=== PATIENT | female | born 1945 | race Caucasian/White ===

== ENCOUNTER → 2016-12-02 | Outpatient (CLI) | payer MEDICARE, BC ==
[~2016-12-02] MED LIST: ACETAMINOPHEN1 EACH PO; ALLERGY RELIEF10 MG PO; ASPIRIN EC81 MG PO; CITALOPRAM HBR20 MG PO; CRESTOR40 MG PO; NORCO 5-325 TA1 EACH PO; VALSARTAN-HCTZ1 EAC3 PO; VITAMIN D1000 UNIT PO; VITAMIN E1000 UNI1 PO
== END | disposition disaster alternative care site (69) ==
LOC: GRAD 13:36
DX: I65.23 Occlusion and stenosis of bilateral carotid arteries (principal); R93.8 Abnormal findings on diagnostic imaging of other specified body structures
CPT/HCPCS: Q9967

== ENCOUNTER 2016-12-10 11:00 | Inpatient (IN) | payer MEDICARE, BC ==
[~2016-12-10] VITALS: Ht 162.6 cm; Wt 88.1 kg
--- NOTE | ~2016-12-10 | OR ---
PATIENT'S NAME: RYANN GUERRERO [facility] AGE: 70 Y [address] ROOM: [address] [address] [facility] AD[facility] DATE: 12/15/2016 OR/Procedure Report DISCHARGE DATE: FAMILY PHYSICIAN: Beverly Coker MD ATTENDING PHYSICIAN: TIM HILTON SURGEON: Tim Hilton MD CRANE OPERATOR: DATE OF PROCEDURE: 12/15/2016 PREOPERATIVE DIAGNOSIS: Recurrent right carotid stenosis. POSTOPERATIVE DIAGNOSIS: Recurrent right carotid stenosis. PROCEDURE: Right redo carotid endarterectomy with bovine pericardial patch. LAW WRITER: VICKI Thompson. ANESTHESIA: General. ESTIMATED FLUID LOSS: 50 mL. OPERATIVE FINDINGS: Plaque and thrombus in the previously endarterectomized artery removed. The patient was also neurologically intact at the end of the case. DESCRIPTION OF PROCEDURE: The patient was brought to the operating room, placed supine on operating table, placed under general anesthesia, had placement of a Mary catheter as well as arterial line for intraoperative monitoring, prepped and draped in a sterile manner. Received preop antibiotics. Preoperative time-out was performed. We made a standard incision along the anterior border of the sternocleidomastoid muscle. Dissected the soft areolar tissue along the anterior border of the muscle. Identified the internal jugular vein. The facial vein was ligated likely from her previous surgery. We then dissected out the common, the external, the internal, as well as the superior thyroid. There was dense scar tissue. However, we were able to identify all the major structures known, large nerves were seen or transected. We gave 5000 units of heparin and we clamped on all 3 vessels. We then placed an arterial line into the internal and removed the clamp. We performed a back pressure, which showed that her back pressure was greater than 40 mmHg and measured to be 80 mmHg, so we did not require a shunt. We then made an arteriotomy from the common to the internal starting with 11 blade and then finishing with the [place] scissors. We then removed the plaque and thrombus entirely from the internal carotid as well as the common. We then patched the artery with running bovine pericardial patch with a 6-0 [place] sutures. After completing anastomosis, we removed the clamp from the PATIENT'S NAME: RYANN GUERRERO [facility] AGE: 70 Y [address] ROOM: [address] [place], [place] [address] [facility] AD[facility] DATE: 12/15/2016 OR/Procedure Report DISCHARGE DATE: FAMILY PHYSICIAN: Beverly Coker MD ATTENDING PHYSICIAN: TIM HILTON external, we fixed any leaking areas with interrupted 6-0 Prolene. We removed the clamp from the common, waited 10 heartbeats, and then removed the clamp from the internal. Flow was confirmed in all 3 vessels using a Doppler. Deep layers were closed with 2-0 and 3-0 Vicryl. Thrombin was used locally in the wound. Protamine was used to reverse the heparin. We then closed the skin with a running 4-0 Monocryl. The patient tolerated the procedure well, awoken in the operating room, able to follow commands and say her name, transferred to the recovery room and up to the floor. MD TAMARA DUARTE/modl /[id number] d: 12/15/164 t: 12/17/16 1244, OPERATIVE SUMMARY
--- NOTE | ~2016-12-10 | DS ---
PATIENT'S NAME: RYANN GUERRERO [facility] AGE: 70 Y [address] ROOM: [address] [place], [place] [address] LOCATION: [facility] ADMIT DATE: 12/15/2016 Discharge Summary DISCHARGE DATE: 12/17/2016 FAMILY PHYSICIAN: Beverly Coker MD ATTENDING PHYSICIAN: Tim Hilton FINAL DIAGNOSES: 1. Recurrent right internal carotid artery stenosis, status post right redo carotid endarterectomy. 2. Nonobstructive coronary artery disease. 3. Hypertension, well-controlled. 4. History of cerebrovascular accident x2. 5. History of chronic obstructive pulmonary disease. 6. History of depression. 7. Hypokalemia, resolved. 8. Nocturnal hypoxia. CONSULTATIONS: Vascular Surgery, Dr. Hilton. PROCEDURES: Right redo carotid endarterectomy by Dr. Hilton. REASON FOR ADMISSION: This is a 70-year-old female who was admitted electively by Dr. Hilton for recurrent right carotid artery stenosis. The patient was admitted by Dr. Hilton for right redo carotid endarterectomy with bovine patch. Please see his operative orders for further details of admission. DIAGNOSTIC STUDIES: During this admission, serial CBCs were done. White count remained essentially normal, hemoglobin and hematocrit levels were normal, platelet count was 150 on admission and 130 at the time of discharge. Serial BMPs were done. Electrolytes were within normal range. The patient's potassium was 3.5 on admission and was supplemented and at the time of discharge stable at 3.6. Renal function tests were normal. Liver function tests were normal. Mag 2.1. HOSPITAL COURSE: This is a 70-year-old female with recurrent right carotid stenosis. The patient was admitted for an elective procedure with Dr. Hilton. The patient underwent redo right carotid endarterectomy with Dr. Hilton. Postop course was uncomplicated. The night after her surgery, the patient did require oxygen. She has a history of COPD. Next day, the patient's pain was well-controlled. She underwent a trend ox study the subsequent night and qualified for home O2 and had significant nocturnal hypoxia. The patient then continued to do well, she was tolerating p.o., she was ambulating in the hallway without any problems, her blood pressure was very PATIENT'S NAME: RYANN GUERRERO [facility] AGE: 70 Y [address] ROOM: [address] [place], [place] [address] LOCATION: [facility] ADMIT DATE: 12/15/2016 Discharge Summary DISCHARGE DATE: 12/17/2016 FAMILY PHYSICIAN: Beverly Coker MD ATTENDING PHYSICIAN: Tim Hilton well-controlled, she continued to do well, and was discharged and asked to follow up with her primary care physician. DISCHARGE INSTRUCTIONS: The patient discharged in a cardiac diet. No heavy lifting or driving for 2 weeks recommended. Dressing is open to air. Follow up with Shannan Heard APRN in 2 weeks' time. Follow up with Dr. Coker in [facility] in 4-5 days' time. PCP to check a CBC and a BMP. Please have PCP arrange for outpatient sleep study. Tobacco cessation discussed in great detail during this admission. DISCHARGE MEDICATIONS: 1. Aspirin 81 mg p.o. daily. 2. Crestor 40 mg p.o. q.h.s. 3. Vitamin D3 cholecalciferol 1000 units p.o. q.a.m. 4. Vitamin E Mixed 1000 units p.o. q.a.m. 5. Citalopram 20 mg p.o. q.a.m. 6. Allergy Relief 10 mg p.o. q.a.m. 7. Valsartan hydrochlorothiazide 320/25 mg 1 tab p.o. q.p.m. 8. Acetaminophen PM caplet 2 tabs p.o. q.h.s. 9. [place] 5/325 mg 1 tab p.o. q.2 h. p.r.n. pain. 10. O2 at 2 L/minute at h.s. This patient was managed by hospitalist and Vascular Surgery teams during this admission. BRUCE RUTLEDGE MD MT/betyl /[id number] CC: Beverly Coker MD d: 12/18/16 0255 t: 12/20/16 2144, DISCHARGE SUMMARY
--- NOTE | ~2016-12-10 | PUL ---
PATIENT'S NAME: RYANN GUERRERO [facility] AGE: 70 Y [address] ROOM: [place] [address] LOCATION: [facility] ADMIT DATE: 12/15/2016 Pulmonary DISCHARGE DATE: 12/17/2016 FAMILY PHYSICIAN: Beverly Coker MD ATTENDING PHYSICIAN: Tim Hilton NAME OF PROCEDURE: Overnight Trend Oximetry DATE OF PROCEDURE: December 16 to December 17, 2016 REASON FOR EXAM: Nocturnal hypoxemia RESULTS: Patient underwent overnight trend oximetry, saturations ranging from 74 to 93%. Saturations were below 88% for greater than 5 minutes. Heart rate ranged from 53 to 90 beats per minute. HENRY FREEMAN MD /[id number] dtt: 01/04/17 0827 , Henry Freeman dtd: 12/21/16 1504
[~2016-12-10 11:00] MED LIST changes: -NORCO 5-325 TA1 EACH PO
[2016-12-15 10:44] LABS: BASOPHIL # 0.1 K/uL (0.0-0.2); BASOPHIL % 0.9 %; EOSINOPHIL # 0.3 K/uL (0.0-0.5); EOSINOPHIL % 4.7 %; HEMATOCRIT 40.8 % (33.0-46.0); HEMOGLOBIN 14.4 g/dL (10.0-15.0); IMMATURE GRANULOCYTE % 0.2 %; LYMPHOCYTE # 2.4 K/uL (0.8-4.0); LYMPHOCYTE % 37.6 %; MCH 34.8 pg (27.0-34.0); MCHC 35.3 gm/dL (32.0-36.5); MCV 98.6 fl (83.0-98.0); MONOCYTE # 0.4 K/uL (0.0-1.0); MONOCYTE % 6.4 %; MPV 10.6 fl (9.4-12.4); NEUTROPHIL # (ANC) 3.2 K/uL (1.8-7.8); NEUTROPHIL % 50.2 %; NRBC % 0 /100WBC (0-0.00); PLATELET COUNT 150 K/uL (150-450); RBC 4.14 M/uL (3.50-5.50); RDW-CV 12.5 % (11.9-14.6); WBC 6.4 K/uL (4.0-11.0)
[2016-12-15 11:01] LABS: ALBUMIN 4.1 gm/dL (3.5-5.0); ALK PHOS 47 IU/L (33-138); ALT 34 IU/L (12-78); ANION GAP 12.5 (10.0-19.0); AST 23 IU/L (10-40); BLOOD UREA NITROGEN 17 mg/dL (6-24); CALCIUM 8.5 mg/dL (8.5-10.5); CHLORIDE 104 mMol/L (96-110); CO2 28 mMol/L (22-32); CREATININE 0.6 mg/dL (0.5-1.1); ESTIMATED GFR (MDRD EQUATION) > 60; POTASSIUM 3.5 mMol/L (3.7-5.1); SODIUM 141 mMol/L (135-145); TOTAL BILIRUBIN 1.2 mg/dL (0.0-1.5); TOTAL PROTEIN 6.6 g/dL (6.0-8.4)
--- NOTE | 2016-12-15 16:56 | NUR ---
Significant Event: PT A&O x3. VSS, on 3L O2 per nasal cannula. Dressing intact to R)neck, small shadow drainage. Artline patent to L)wrist. Midline IV to upper L)arm. PT tolerating clear liquids. No void post op. [place] given in PACU at 1500. PT has hoarse voice and frequent non productive cough. Follow up:
--- NOTE | 2016-12-16 05:27 | NUR ---
Significant Event: A/O x3. Afebrile. Denies pain. VSS on 3L. SBP 91-100s. HRs 60-70s. LS sl coarse/cleardim. Frequent nonproductive cough. Rt neck surgical site with dressing, 2 old spots of small drainage otherwise dry/intact. Art line in place. Up to bedside commode x2. Pt was reeducated to not use left arm due to art line. Pt needs assistance with drinking fluids and eating due to inability to raise rt arm to face. Cooperative with cares. Follow up: Continue to monitor per plan of care.
[2016-12-16 07:07] LABS: BASOPHIL % 0.4 %; EOSINOPHIL % 0.2 %; HEMATOCRIT 35.7 % (33.0-46.0); HEMOGLOBIN 12.3 g/dL (10.0-15.0); IMMATURE GRANULOCYTE % 0.2 %; LYMPHOCYTE # 1.7 K/uL (0.8-4.0); LYMPHOCYTE % 20.6 %; MCH 34.6 pg (27.0-34.0); MCHC 34.5 gm/dL (32.0-36.5); MCV 100.3 fl (83.0-98.0); MONOCYTE # 0.6 K/uL (0.0-1.0); MONOCYTE % 6.8 %; MPV 10.5 fl (9.4-12.4); NEUTROPHIL # (ANC) 5.9 K/uL (1.8-7.8); NEUTROPHIL % 71.8 %; NRBC % 0 /100WBC (0-0.00); PLATELET COUNT 128 K/uL (150-450); RBC 3.56 M/uL (3.50-5.50); RDW-CV 12.8 % (11.9-14.6); WBC 8.2 K/uL (4.0-11.0)
[2016-12-16 07:21] LABS: ANION GAP 11.9 (10.0-19.0); BLOOD UREA NITROGEN 12 mg/dL (6-24); CALCIUM 8.1 mg/dL (8.5-10.5); CHLORIDE 107 mMol/L (96-110); CO2 25 mMol/L (22-32); CREATININE 0.5 mg/dL (0.5-1.1); ESTIMATED GFR (MDRD EQUATION) > 60; POTASSIUM 3.9 mMol/L (3.7-5.1); SODIUM 140 mMol/L (135-145)
--- NOTE | 2016-12-16 12:10 | NUR ---
Introduced self and role of care management to patient and sister. She lives by herself in [place]. She states that she is normally able to do all her own ADL's. She does use a walker. She states that she is going to go home with her sister for a few weeks on discharge. She denies any needs at this time. Will continue to follow.
--- NOTE | 2016-12-16 14:21 | NUR ---
Significant Event: PT A&O x3. VSS, weaned to RA. Encouraged to cough and deep breathe. Incision to R)neck IVETH, edges approximated. IV patent to R)wrist and L)upper arm. PT ambulates with walker, 1 assist and gait belt. Voiding without difficulties. Denies pain. Follow up: Possible dc to home tomorrow.
[2016-12-16 23:42] LABS: ANION GAP 12.6 (10.0-19.0); BLOOD UREA NITROGEN 22 mg/dL (6-24); CHLORIDE 106 mMol/L (96-110); CO2 28 mMol/L (22-32); CREATININE 0.7 mg/dL (0.5-1.1); ESTIMATED GFR (MDRD EQUATION) > 60; MAGNESIUM 2.1 mg/dL (1.8-2.6); POTASSIUM 3.6 mMol/L (3.7-5.1); SODIUM 143 mMol/L (135-145)
--- NOTE | 2016-12-17 04:47 | NUR ---
Significant Event: A/O x3. Afebrile. Denies pain. VSS. Trendox study during night, sats 88-90% on RA. LS clear/dim. SBP 120-140s. HR 60-70s. Up to bathroom x2. 1 assist w/ walker. 40 meq kcl given for 3.6 potassium. 9 beats of vtach, reported to MD. Cooperative with cares. Follow up: Plan for d/c today.
[2016-12-17 05:04] LABS: BASOPHIL # 0.1 K/uL (0.0-0.2); BASOPHIL % 0.7 %; EOSINOPHIL # 0.2 K/uL (0.0-0.5); EOSINOPHIL % 3.2 %; HEMATOCRIT 36.8 % (33.0-46.0); HEMOGLOBIN 12.5 g/dL (10.0-15.0); IMMATURE GRANULOCYTE % 0.1 %; LYMPHOCYTE # 3.5 K/uL (0.8-4.0); LYMPHOCYTE % 51.6 %; MCH 34.5 pg (27.0-34.0); MCV 101.7 fl (83.0-98.0); MONOCYTE # 0.5 K/uL (0.0-1.0); MONOCYTE % 7.1 %; MPV 10.5 fl (9.4-12.4); NEUTROPHIL # (ANC) 2.5 K/uL (1.8-7.8); NEUTROPHIL % 37.3 %; NRBC % 0 /100WBC (0-0.00); PLATELET COUNT 130 K/uL (150-450); RBC 3.62 M/uL (3.50-5.50); RDW-CV 13.1 % (11.9-14.6); WBC 6.8 K/uL (4.0-11.0)
[2016-12-17] MEDS ORDERED: NORCO 5-325 TA1 EACH PO (10:53)
--- NOTE | 2016-12-17 12:31 | NUR ---
d- ok dc i-nurse did teaching on meds with rx given, ivs both dcd ok no problems, 02 co.to call pt and get her 02 set up for tonight at her sister home [facility], pt dressed self, r)neck looks ok just old bloody drng dried is intact, pt sister to drive pt home, teaching done on carotid sx and cares r-pt states all understanding and is pleasant p-dc per ta to car per wc
== END 2016-12-17 12:28 | disposition disaster alternative care site (69) | DRG 39 ==
LOC: GPCU 12-15 09:28
PROVIDERS: Internal Medicine; ADMIT Surgery Vascular Surgery
DX: I65.21 Occlusion and stenosis of right carotid artery (principal); G47.34 Idiopathic sleep related nonobstructive alveolar hypoventilation; J44.9 Chronic obstructive pulmonary disease, unspecified; Z98.890 Other specified postprocedural states; I25.10 Atherosclerotic heart disease of native coronary artery without angina pectoris; I10 Essential (primary) hypertension; E87.6 Hypokalemia
CPT/HCPCS: C1751; J0690; J1100; J1644; J1650; J2001; J2405; J2720; J3480; J7030